=== PATIENT | female | born 1985 | race Hispanic/Latino ===

== ENCOUNTER 2016-10-23 09:33 | Emergency (ER) | payer MEDICAID ==
[2016-10-23 09:34] VITALS: BMI 32.5
[2016-10-23 09:59] VITALS: BP 118/87; PULSE 81; RESP 16; TEMP 98.2; O2SAT 98
--- NOTE | 2016-10-23 10:15 | ED PDOC ---
Arrival/HPI - General Chief Complaint: Female Genitourinary Time Seen by Provider: 10/23/16 10:09 - History of Present Illness Narrative History of Present Illness (Text): 10/23/16 10:14 Patient is reporting generalized fatigue and nausea. She reports that she is under a significant amount of stress currently and reports that she is not sure if it is the stress or if she could be . She reports similar symptoms in prior pregnancies. She reports 2 home tests negative but reports LMP was September 04. She reports irregular menses but reports wanting definitive testing. No other complaints. 10/23/16 11:57 Past Medical History - Past History Past History: No Previous - Infectious Disease Hx of Infectious Diseases: None - Tetanus Immunization Tetanus Immunization: Unknown - Musculoskeletal/Rheumatological Hx Falls: No - Psychiatric Hx Psychophysiologic Disorder: No Hx Substance Use: No - Past Surgical History Past Surgical History: No Previous - Anesthesia Hx Anesthesia: Yes Hx Anesthesia Reactions: No Hx Malignant Hyperthermia: No - Suicidal Assessment Feels Threatened In Home Enviroment: No Family/Social History Family/Social History: No Known Family HX Smoking Status: Light Smoker < 10 Cigarettes Daily Hx Alcohol Use: Yes Frequency of alcohol use: Socially Hx Substance Use: No Hx Substance Use Treatment: No Allergies/Home Meds Allergies/Adverse Reactions: Allergies No Known Allergies Allergy (Verified 10/23/16 09:52) Home Medications: Home Meds Medication Instructions Recorded Confirmed No Known Home Med 10/23/16 10/23/16 Review of Systems - Review of Systems Constitutional: Fatigue ENT: absent: Hearing Changes Respiratory: absent: SOB, Cough, Sputum, Wheezing Cardiovascular: absent: Chest Pain Gastrointestinal: Nausea. absent: Abdominal Pain, Constipation, Diarrhea, Vomiting Genitourinary Female: absent: Dysuria, Frequency, Hematuria, Urine Output Changes, Vaginal Bleeding, Vaginal Discharge Musculoskeletal: absent: Back Pain Skin: absent: Rash Neurological: absent: Headache, Dizziness, Focal Weakness Psychiatric: absent: Anxiety, Depression Physical Exam Vital Signs Temp Pulse Resp BP Pulse Ox 10/23/16 09:53 98.2 F 81 16 118/87 98 Temperature: Afebrile Blood Pressure: Normal Pulse: Regular Respiratory Rate: Normal Appearance: Positive for: Well-Appearing, Non-Toxic, Comfortable Pain Distress: None Mental Status: Positive for: Alert and Oriented X 3 - Systems Exam Head: Present: Atraumatic, Normocephalic Pupils: Present: PERRL Extroacular Muscles: Present: EOMI Conjunctiva: Present: Normal Mouth: Present: Moist Mucous Membranes Neck: Present: Normal Range of Motion Respiratory/Chest: Present: Clear to Auscultation, Good Air Exchange. No: Respiratory Distress Cardiovascular: Present: Regular Rate and Rhythm Abdomen: No: Tenderness, Distention Back: Present: Normal Inspection. No: CVA Tenderness Upper Extremity: Present: Normal Inspection Lower Extremity: Present: Normal Inspection Neurological: Present: GCS=15, CN II-XII Intact, Gait Normal Psychiatric: Present: Alert, Oriented x 3 Medical Decision Making ED Course and Treatment: 10/23/16 11:37 Patient is presenting for test. BHCG<2.39. Patient was made aware of results. Continues to deny any other symptoms (and therefore will not treat asymptomatic bacteriuria. - Lab Interpretations Lab Results: Lab Results 10/23/16 10:48: Beta HCG, Quant < 2.39 10/23/16 10:28: Urine Color Yellow, Urine Appearance Sl cloudy, Urine pH 6.0, Ur Specific [place] >= 1.030, Urine Protein Negative, Urine Glucose (UA) Negative, Urine Ketones Negative, Urine Blood Small H, Urine Nitrate Negative, Urine Bilirubin Negative, Urine Urobilinogen 1.0 H, Ur Leukocyte Esterase Moderate H, Urine RBC 0 - 2, Urine WBC 2 - 5, Ur Epithelial Cells 1 - 3, Urine Bacteria Small Disposition/Present on Arrival - Present on Arrival Any Indicators Present on Arrival: No History of DVT/PE: No History of Uncontrolled Diabetes: No Urinary Catheter: No History of Decub. Ulcer: No History Surgical Site Infection Following: None - Disposition Have Diagnosis and Disposition been Completed?: Yes Diagnosis: test negative Disposition: HOME/ ROUTINE Disposition Time: 11:38 Patient Plan: Discharge Condition: GOOD Additional Instructions: Follow up with PMD within 2 days for further evaluation. Return to ED if condition worsens. Referrals: Collins Shaikh Jr., MD [Primary Care Provider] - Follow up with primary
[2016-10-23 10:41] LABS: URINE BILIRUBIN NEGATIVE (NEGATIVE); URINE BLOOD SMALL (NEGATIVE); URINE GLUCOSE (UA) NEGATIVE (NEGATIVE); URINE KETONE NEGATIVE (NEGATIVE); URINE LEUKOCYTE ESTERASE MODERATE Leu/uL (NEGATIVE); URINE PROTEIN NEGATIVE mg/dL (<30 mg/dL)
[2016-10-23 10:42] LABS: URINE APPEARANCE SL CLOUDY (CLEAR); URINE COLOR YELLOW (YELLOW)
[2016-10-23 10:48] LABS: URINE BACTERIA SMALL (NEG); URINE RBC 0 - 2 /hpf (0-2)
== END 2016-10-23 11:45 | disposition home or self-care (01) ==
LOC: ED 09:33
DX: Z32.02 Encounter for pregnancy test, result negative (principal)

== ENCOUNTER 2016-12-03 20:15 | Emergency (ER) | payer MEDICAID ==
[2016-12-03 20:22] VITALS: BMI 33.5
[2016-12-03 20:26] VITALS: BP 121/60; PULSE 87; RESP 18; TEMP 98.4; O2SAT 97
--- NOTE | 2016-12-03 20:56 | ED PDOC ---
Arrival/HPI - General Historian: Patient - History of Present Illness Time/Duration: Other (5 days) Symptom Course: Worsening (2 days) Context: Home <Adin Morrison - Last Filed: 12/03/16 20:50> <Demetrius Lundy - Last Filed: 12/03/16 21:05> - General Chief Complaint: Abnormal Skin Integrity Time Seen by Provider: 12/03/16 20:24 - History of Present Illness Narrative History of Present Illness (Text): 12/03/16 20:40 This 31 yo female presents to this ED c/o posterior scalp rash x 5 days. Patient stated rash worsen last 2 days, also affection posterior neck. (Adin Morrison) Past Medical History - Provider Review Nursing Documentation Reviewed: Yes - Past History Past History: No Previous - Infectious Disease Hx of Infectious Diseases: None - Tetanus Immunization Tetanus Immunization: Unknown - Musculoskeletal/Rheumatological Hx Falls: No - Psychiatric Hx Psychophysiologic Disorder: No Hx Substance Use: No - Past Surgical History Past Surgical History: No Previous - Anesthesia Hx Anesthesia: No Hx Anesthesia Reactions: No Hx Malignant Hyperthermia: No - Suicidal Assessment Feels Threatened In Home Enviroment: No <Adin Morrison - Last Filed: 12/03/16 20:50> Family/Social History - Physician Review Nursing Documentation Reviewed: Yes Family/Social History: No Known Family HX Smoking Status: Former Smoker Hx Alcohol Use: Yes Frequency of alcohol use: Socially Hx Substance Use: No Hx Substance Use Treatment: No <Adin Morrison - Last Filed: 12/03/16 20:50> Allergies/Home Meds <Adin Morrison - Last Filed: 12/03/16 20:50> <Demetrius Lundy - Last Filed: 12/03/16 21:05> Allergies/Adverse Reactions: Allergies No Known Allergies Allergy (Verified 10/23/16 09:52) Review of Systems - Review of Systems Constitutional: Normal. absent: Fatigue, Weight Change, Fevers, Night Sweats Eyes: Normal ENT: Normal Respiratory: Normal Cardiovascular: Normal Gastrointestinal: Normal Genitourinary Female: Normal Musculoskeletal: Normal Skin: Rash (posterior scalp, and neck), Pruritis Neurological: Normal Endocrine: Normal Hemo/Lymphatic: Normal Psychiatric: Normal <Adin Morrison - Last Filed: 12/03/16 20:50> Physical Exam Temperature: Afebrile Blood Pressure: Normal Pulse: Regular Respiratory Rate: Normal Appearance: Positive for: Well-Appearing, Non-Toxic, Comfortable Pain Distress: None Mental Status: Positive for: Alert and Oriented X 3 - Systems Exam Head: Present: Atraumatic, Normocephalic Pupils: Present: PERRL Extroacular Muscles: Present: EOMI Conjunctiva: Present: Normal Mouth: Present: Moist Mucous Membranes Neck: Present: Normal Range of Motion Upper Extremity: Present: Normal Inspection, Normal ROM, NORMAL PULSES, Neurovascularly Intact, Capillary Refill < 2s Lower Extremity: Present: Normal Inspection, NORMAL PULSES, Normal ROM, Capillary Refill < 2 s Neurological: Present: GCS=15, CN II-XII Intact, Speech Normal Skin: Present: Warm, Dry, Rashes (scaly, plaque like rash, with mild scaly. No abscess or cellultis) Psychiatric: Present: Alert, Oriented x 3, Normal Insight <Adin Morrison - Last Filed: 12/03/16 20:50> Medical Decision Making Re-evaluation Time: 20:58 Reassessment Condition: Re-examined, Improved <Adin Morrison - Last Filed: 12/03/16 20:50> <Demetrius Lundy - Last Filed: 12/03/16 21:05> ED Course and Treatment: 12/03/16 20:57 Re-evaluation. Patient feels better. Discussed results and plan with patient who expresses understanding. All questions answered and there is agreement with the plan to discharge home with instructions. Patient stable for discharge. Return if symptoms persist or worsen. (Adin Morrison) - Medication Orders Current Medication Orders: Discontinued Medications Cephalexin Monohydrate (Keflex) 500 mg PO STAT STA PRN Reason: Protocol Stop: 12/03/16 20:58 - PA / RESEARCH CONSULTANT / Resident Statement DALTON has reviewed & agrees with the documentation as recorded. DALTON has examined the patient and agrees with the treatment plan. <Demetrius Lundy - Last Filed: 12/03/16 21:05> Disposition/Present on Arrival - Present on Arrival Any Indicators Present on Arrival: No History of DVT/PE: No History of Uncontrolled Diabetes: No Urinary Catheter: No History of Decub. Ulcer: No History Surgical Site Infection Following: None - Disposition Have Diagnosis and Disposition been Completed?: Yes Disposition Time: 20:59 Patient Plan: Discharge <Adin Morrison - Last Filed: 12/03/16 20:50> <Demetrius Lundy - Last Filed: 12/03/16 21:05> - Disposition Diagnosis: Rash and nonspecific skin eruption Disposition: HOME/ ROUTINE Patient Problems: Current Active Problems Problem Status Onset Rash and nonspecific skin eruption Acute Condition: GOOD Discharge Instructions (ExitCare): Seborrheic Dermatitis (GEN) Additional Instructions: Call private doctor for follow up visit in 1-2 days. Call steel construction worker for revaluation if rash persist. Return to emergency if symptoms worsen. Apply topical cream till rash resolved. Prescriptions: Cephalexin [cephalexin] 500 mg PO QID #28 cap Triamcinolone Acetonide [Kenalog 0.5% cream] 1 applic TOP TID #1 tube Referrals: Cristiana Vences MD [Staff Provider] - Follow up with primary Collins Shaikh Jr., MD [Primary Care Provider] - Follow up with primary
== END 2016-12-03 21:17 | disposition home or self-care (01) ==
LOC: ED 20:15
DX: R21 Rash and other nonspecific skin eruption (principal)

== ENCOUNTER 2017-05-13 16:04 | Emergency (ER) | payer MEDICAID, OTHER ==
[2017-05-13 16:15] VITALS: BP 136/95; BMI 32.1
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
[2017-05-13 18:23] VITALS: PULSE 82; TEMP 98.1; O2SAT 99
--- NOTE | 2017-05-13 18:28 | RAD ---
PROCEDURE: Radiographs of the Right Shoulder HISTORY: pain COMPARISON: None available. FINDINGS: BONES: No acute displaced fracture. The distal clavicle and underlying ribs appear intact. JOINTS: No acute dislocation. SOFT TISSUES: Soft tissues appear unremarkable. No evidence of radiopaque foreign body. IMPRESSION: No acute displaced fracture or dislocation evident. If symptoms persist or if there is continued clinical concern, x-ray follow-up in 7-10 days should be considered.
[2017-05-13 18:52] VITALS: RESP 20
== END 2017-05-13 18:52 | disposition home or self-care (01) ==
LOC: ED 16:04
DX: M25.511 Pain in right shoulder (principal); M54.5 Low back pain; V49.59XA Passenger injured in collision with other motor vehicles in traffic accident, initial encounter; Y92.410 Unspecified street and highway as the place of occurrence of the external cause
CPT/HCPCS: 72110; 73030; 81025; 96372; 99284; J1885

== ENCOUNTER 2017-12-30 10:39 | Emergency (ER) | payer MEDICAID ==
[2017-12-30 11:15] VITALS: BMI 33.5
[2017-12-30 11:23] VITALS: RESP 18; TEMP 98.3
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
[2017-12-30 13:05] VITALS: BP 119/86; PULSE 60; O2SAT 98
== END 2017-12-30 13:40 | disposition home or self-care (01) ==
LOC: ED 10:39
DX: S80.01XA Contusion of right knee, initial encounter (principal); W19.XXXA Unspecified fall, initial encounter; Z87.891 Personal history of nicotine dependence

== ENCOUNTER 2018-03-12 21:42 | Emergency (ER) | payer MEDICAID ==
[2018-03-12 23:22] VITALS: BMI 29.2
[2018-03-12 23:27] VITALS: RESP 18; TEMP 98; O2SAT 100
--- NOTE | 2018-03-13 00:50 | ED PDOC ---
Arrival/HPI - General Historian: Patient - History of Present Illness Narrative History of Present Illness (Text): 03/13/18 00:48 32yr old female with left ankle pain s/p injury this morning. pt states she missed 2 steps and twisted the ankle. pt is c/o minimal pain to the lateral aspect of the ankle. pt states she has been ambulating on the ankle. pt states she didnt go to work today and her job wants a note that she was seen for the ankle injury. pt is refusing medications for pain at present time. no other complaints. <Radha Zuluaga - Last Filed: 03/13/18 00:57> <Farzana Crowell - Last Filed: 03/15/18 13:38> - General Chief Complaint: Lower Extremity Problem/Injury Time Seen by Provider: 03/13/18 00:26 Past Medical History - Provider Review Nursing Documentation Reviewed: Yes - Travel History Have you recently traveled outside [place] w/in the past 3 mons?: No - Past History Past History: No Previous - Infectious Disease Hx of Infectious Diseases: None - Tetanus Immunization Tetanus Immunization: Unknown - Cardiac Hx Cardiac Disorders: No - Pulmonary Hx Respiratory Disorders: No - Neurological Hx Neurological Disorder: No - HEENT Hx HEENT Disorder: No - Renal Hx Renal Disorder: No - Endocrine/Metabolic Hx Endocrine Disorders: No - Hematological/Oncological Hx Blood Disorders: No - Integumentary Hx Dermatological Disorder: No - Musculoskeletal/Rheumatological Hx Falls: No - Gastrointestinal Hx Gastrointestinal Disorders: No - Genitourinary/Gynecological Hx Genitourinary Disorders: No - Psychiatric Hx Psychophysiologic Disorder: No Hx Substance Use: No - Past Surgical History Past Surgical History: No Previous - Anesthesia Hx Anesthesia: No Hx Anesthesia Reactions: No Hx Malignant Hyperthermia: No - Suicidal Assessment Feels Threatened In Home Enviroment: No <Radha Zuluaga T - Last Filed: 03/13/18 00:57> Family/Social History - Physician Review Nursing Documentation Reviewed: Yes Family/Social History: Unknown Family HX Smoking Status: Former Smoker Hx Alcohol Use: Yes Hx Substance Use: No Hx Substance Use Treatment: No <Radha Zuluaga - Last Filed: 03/13/18 00:57> Allergies/Home Meds <Radha Zuluaga - Last Filed: 03/13/18 00:57> <Farzana Crowell - Last Filed: 03/15/18 13:38> Allergies/Adverse Reactions: Allergies No Known Allergies Allergy (Verified 12/30/17 11:23) Home Medications: Home Meds Medication Instructions Recorded Confirmed RX: No Known Home Med 03/12/18 03/12/18 Review of Systems - Review of Systems Constitutional: absent: Fatigue, Fevers Respiratory: absent: SOB, Cough Cardiovascular: absent: Chest Pain, Palpitations, Syncope Gastrointestinal: absent: Nausea, Vomiting Musculoskeletal: Arthralgias Skin: absent: Rash, Pruritis Neurological: absent: Headache, Dizziness <Radha Zuluaga - Last Filed: 03/13/18 00:57> Physical Exam Vital Signs Reviewed: Yes Vital Signs Temp Pulse Resp BP Pulse Ox 03/12/18 23:00 98.0 F 79 18 125/79 100 Temperature: Afebrile Blood Pressure: Normal Pulse: Regular Respiratory Rate: Normal Appearance: Positive for: Well-Appearing, Non-Toxic, Comfortable Pain Distress: None Mental Status: Positive for: Alert and Oriented X 3 - Systems Exam Head: Present: Atraumatic Respiratory/Chest: Present: Clear to Auscultation Cardiovascular: Present: Regular Rate and Rhythm Lower Extremity: Present: Normal Inspection, NORMAL PULSES, Normal ROM, Tenderness (left ankle; + ttp over lateral malleolus; no edema, no erythema; no ecchymosis; full rom of ankle; sensation and distal pulses intact. cap refill <2. ), Neurovascularly Intact, Capillary Refill < 2 s. No: Edema, CALF TENDERNESS, Swelling, Erythema, Deformity, Temperature Abnormalties Neurological: Present: GCS=15 Skin: Present: Warm, Dry, Normal Color. No: Rashes Psychiatric: Present: Alert, Oriented x 3 <Radha Zuluaga - Last Filed: 03/13/18 00:57> Vital Signs Temp Pulse Resp BP Pulse Ox 03/13/18 01:00 80 18 121/82 100 03/12/18 23:00 98.0 F 79 18 125/79 100 <Farzana Crowell - Last Filed: 03/15/18 13:38> Medical Decision Making ED Course and Treatment: 03/13/18 00:50 Patient nontoxic well-appearing in no distress with stable vital signs X-rays of the left ankle; no fracture pt refused medications for pain. Patient refused air cast and crutches. pt now wants tylenol for pain. I discussed all results in depth with the patient advised to followup with the orthopedist within the next 2 days. Advised return if symptoms worsen persist or new symptoms develop Patient verbalizes understanding of discharge instructions and need for immediate followup. all aspects of this case were discussed the attending of record. Impression: Ankle pain Motrin every 6 hours as needed for pain Rest, ice, compression, elevation Use crutches for ambulation Followup with the orthopedist within the next 2 days Followup with primary care physician within the next 2 days Return if symptoms worsen persist or if new symptoms develop - RAD Interpretation Radiology Orders: 03/13/18 00:27 ANKLE LEFT 3 VIEWS ROUTINE [RAD] Stat <Radha Zuluaga - Last Filed: 03/13/18 00:57> - RAD Interpretation Radiology Orders: 03/13/18 00:27 ANKLE LEFT 3 VIEWS ROUTINE [RAD] Stat - Medication Orders Current Medication Orders: Discontinued Medications Acetaminophen (Tylenol 325mg Tab) 975 mg PO STAT STA Stop: 03/13/18 00:58 Last Admin: 03/13/18 01:00 Dose: 975 mg <Farzana Crowell - Last Filed: 03/15/18 13:38> - PA / CLINICAL VETERINARIAN / Resident Statement / has reviewed & agrees with the documentation as recorded. <Farzana Crowell - Last Filed: 03/15/18 13:38> Disposition/Present on Arrival - Present on Arrival Any Indicators Present on Arrival: No History of DVT/PE: No History of Uncontrolled Diabetes: No Urinary Catheter: No History of Decub. Ulcer: No History Surgical Site Infection Following: None - Disposition Have Diagnosis and Disposition been Completed?: Yes Disposition Time: 00:47 Patient Plan: Discharge <aRdha Zuluaga - Last Filed: 03/13/18 00:57> <Farzana Crowell - Last Filed: 03/15/18 13:38> - Disposition Diagnosis: Ankle pain Disposition: HOME/ ROUTINE Condition: GOOD Discharge Instructions (ExitCare): Ankle Sprain Additional Instructions: Motrin every 6 hours as needed for pain Rest, ice, compression, elevation Use crutches for ambulation Followup with the orthopedist within the next 2 days Followup with primary care physician within the next 2 days Return if symptoms worsen persist or if new symptoms develop Referrals: Mastromonaco,Edward, DO [Staff Provider] - Follow up with primary [facility] [Outside] - Follow up with primary [facility] [Outside] - Follow up with primary Forms: [employer] ([place]), WORK NOTE
[2018-03-13 01:10] VITALS: BP 121/82; PULSE 80
--- NOTE | 2018-03-13 10:37 | RAD ---
Date of service: 03/13/2018 PROCEDURE: Left Ankle Radiographs. HISTORY: ankle pain COMPARISON: None FINDINGS: BONES: Normal. No fracture. JOINTS: Normal. No osteoarthritis. Ankle mortise maintained. Talar dome intact SOFT TISSUES: Normal. OTHER FINDINGS: None. IMPRESSION: Normal left ankle radiographs.
== END 2018-03-13 01:00 | disposition home or self-care (01) ==
LOC: ED 21:42
DX: M25.572 Pain in left ankle and joints of left foot (principal); Z87.891 Personal history of nicotine dependence

== ENCOUNTER 2018-09-27 08:21 | Emergency (ER) | payer MEDICAID ==
[2018-09-27 08:21] VITALS: BMI 29.2
[2018-09-27 08:44] VITALS: RESP 18
--- NOTE | 2018-09-27 08:49 | ED PDOC ---
Arrival/HPI - General Chief Complaint: Abdominal Pain Time Seen by Provider: 09/27/18 08:39 Historian: Patient - History of Present Illness Narrative History of Present Illness (Text): 09/27/18 08:55 33 y.o female with no significant past medical history, presents to the emergency department for a test. Patient reports last menstrual cycle was in late July. Patient reports history of 1 week right lower abdominal pain with a burning sensation that worsens with sitting down. Patient denies urinary symptoms, back pain, headache, dizziness, or any other complaints. Time/Duration: 1 week Symptom Onset: Gradual Symptom Course: Unchanged Quality: Burning Past Medical History - Provider Review Nursing Documentation Reviewed: Yes - Past History Past History: No Previous - Infectious Disease Hx of Infectious Diseases: None - Tetanus Immunization Tetanus Immunization: Unknown - Reproductive Menopause: No - Cardiac Hx Cardiac Disorders: No - Pulmonary Hx Respiratory Disorders: No - Neurological Hx Neurological Disorder: No - HEENT Hx HEENT Disorder: No - Renal Hx Renal Disorder: No - Endocrine/Metabolic Hx Endocrine Disorders: No - Hematological/Oncological Hx Blood Disorders: No - Integumentary Hx Dermatological Disorder: No - Musculoskeletal/Rheumatological Hx Falls: No - Gastrointestinal Hx Gastrointestinal Disorders: No - Genitourinary/Gynecological Hx Genitourinary Disorders: No - Psychiatric Hx Psychophysiologic Disorder: No Hx Substance Use: No - Past Surgical History Past Surgical History: No Previous - Anesthesia Hx Anesthesia: No Hx Anesthesia Reactions: No Hx Malignant Hyperthermia: No - Suicidal Assessment Feels Threatened In Home Enviroment: No Family/Social History - Physician Review Nursing Documentation Reviewed: Yes Family/Social History: Unknown Family HX Smoking Status: Former Smoker Hx Alcohol Use: Yes Hx Substance Use: No Hx Substance Use Treatment: No Allergies/Home Meds Allergies/Adverse Reactions: Allergies No Known Allergies Allergy (Verified 12/30/17 11:23) Home Medications: Home Meds Medication Instructions Recorded Confirmed No Known Home Med 03/12/18 03/12/18 Review of Systems - Physician Review All systems were reviewed & negative as marked: Yes - Review of Systems Gastrointestinal: Abdominal Pain (Right lower abdominal pain. ) Physical Exam - Physical Exam Narrative Physical Exam (Text): 09/27/18 09:00 Gen: VS reviewed, alert, well developed, well nourished, nontoxic, mild distress. ENT: normal pharynx. Eye: EOMI, PERRL. Neck: no JVD, supple, no adenopathy. CV: regular rate, regular rhythm, no rubs, no murmur, no gallops, S1, S2, pulses equal and strong. Pulm: no distress, clear to auscultation, no wheeze, no rhonchi, breath sounds equal, no rales. Abd: soft, nontender, no guarding, no rebound, no rigidity, normal bowel sounds. Ext: no edema. Skin: good color, no rash, no cyanosis. Psych: responds appropriately to questions, normal affect. Neuro: oriented x 3, CN2-12 intact grossly, motor intact, sensation intact Vital Signs Temp Pulse Resp BP Pulse Ox 09/27/18 08:35 98.7 F 78 18 112/76 99 Temperature: Afebrile Blood Pressure: Normal Pulse: Regular Respiratory Rate: Normal Appearance: Positive for: Well-Appearing, Non-Toxic Pain Distress: Mild Mental Status: Positive for: Alert and Oriented X 3 - Systems Exam Genitourinary/Pelvic Exam: Present: Other (Mild right pelvic tenderness. ) Medical Decision Making ED Course and Treatment: 09/27/18 10:15 early gestation, IUP confirmed, no bleeding, refer to ob gyn physician assistant for comprehensive care - Lab Interpretations Narrative Lab Interpretation (Text): 09/27/18 10:10 09/27/18 08:59 Lab Results 09/27/18 08:59: Urine Color Yellow, Urine Appearance Clear, Urine pH 6.0, Ur Specific [place] 1.025, Urine Protein Negative, Urine Glucose (UA) Negative, Urine Ketones Negative, Urine Blood Negative, Urine Nitrate Negative, Urine Bilirubin Negative, Urine Urobilinogen 0.2, Ur Leukocyte Esterase Negative 09/27/18 08:59: WBC 9.0, RBC 4.61, Hgb 12.6, Hct 38.4, MCV 83.3, MCH 27.3, MCHC 32.8, RDW 13.4, Plt Count 244, MPV 11.2 H, Neut % (Auto) 53.1, Lymph % (Auto) 36.5 H, [place] % (Auto) 7.4 H, Eos % (Auto) 2.8, Baso % (Auto) 0.2, Lymph # (Auto) 3.3, [place] # (Auto) 0.7 H, Eos # (Auto) 0.3, Baso # (Auto) 0.02, Absolute Neuts (auto) 4.80 09/27/18 08:59: Beta HCG, Quant 59838.00 H 09/27/18 08:58: Blood Type Pending, Antibody Screen Pending, BBK History Checked Patient has bt I have reviewed the lab results: Yes - RAD Interpretation Narrative RAD Interpretations (Text): 09/27/18 10:14 Ultrasound OB transvaginal Impression: Likely early intrauterine gestation based on: Well- formed gestational sac. Yolk sac. No pole noted. Radiology Orders: 09/27/18 08:44 TRANSVAGINAL [US] Stat Wash Tub Machine Operator: Radiologist - Scribe Statement The provider has reviewed the documentation as recorded by the Scribe Laina Mack All medical record entries made by the Scribe were at my direction and personally dictated by me. I have reviewed the chart and agree that the record accurately reflects my personal performance of the history, physical exam, medical decision making, and the department course for this patient. I have also personally directed, reviewed, and agree with the discharge instructions and disposition. Disposition/Present on Arrival - Present on Arrival Any Indicators Present on Arrival: No History of DVT/PE: No History of Uncontrolled Diabetes: No Urinary Catheter: No History of Decub. Ulcer: No History Surgical Site Infection Following: None - Disposition Have Diagnosis and Disposition been Completed?: Yes Diagnosis: First trimester Disposition: HOME/ ROUTINE Disposition Time: 10:17 Patient Plan: Discharge Patient Problems: Current Active Problems Problem Status Onset First trimester Acute Condition: STABLE Discharge Instructions (ExitCare): Care Referrals: Mateo Salas MD [Staff Provider] - Follow up with primary Forms: [employer] ([place]ican)
[2018-09-27 09:20] LABS: BASO # 0.02 K/mm3 (0.0-2.0); BASO % 0.2 % (0.0-3.0); EOS # 0.3 (0.0-0.7); EOS % 2.8 % (1.5-5.0); HEMOGLOBIN 12.6 g/dL (12.0-16.0); LYMPH # 3.3 (1.2-3.4); LYMPH % 36.5 % (22.0-35.0); MEAN CELL VOLUME 83.3 fl (80.0-105.0); MEAN CORPUSCULAR HEMOGLOBIN 27.3 pg (25.0-35.0); MEAN CORPUSCULAR HGB CONC 32.8 g/dl (31.0-37.0); MEAN PLATELET VOLUME 11.2 fl (7.0-11.0); MONO # 0.7 (0.1-0.6); MONO % 7.4 % (1.0-6.0); RBC 4.61 10^6/uL (3.5-6.1); RED CELL DISTRIBUTION WIDTH 13.4 % (11.5-14.5)
[2018-09-27 09:22] LABS: URINE BILIRUBIN NEGATIVE (NEGATIVE); URINE BLOOD NEGATIVE (NEGATIVE); URINE GLUCOSE (UA) NEGATIVE (NEGATIVE); URINE LEUKOCYTE ESTERASE NEGATIVE Leu/uL (NEGATIVE); URINE PROTEIN NEGATIVE mg/dL (<30 mg/dL); URINE UROBILINOGEN 0.2 E.U./dL (<1 E.U./dL)
[2018-09-27 09:31] LABS: URINE APPEARANCE CLEAR (CLEAR); URINE COLOR YELLOW (YELLOW)
[2018-09-27 09:41] VITALS: BP 134/64; PULSE 88; TEMP 98; O2SAT 100
--- NOTE | 2018-09-27 10:17 | US ---
Date of service: 09/27/2018 PROCEDURE: First trimester ultrasound HISTORY: Pain, possible . COMPARISON: None TECHNIQUE: Standard protocol for this study/examination. FINDINGS: LMP: 08/14/2018 Prior examinations from the current : None TECHNIQUE: Real-time 2D imaging, duplex and color Doppler. FINDINGS: No pole identified. Gestational age Out of range. Below threshold for calculation of reliable gestational age. based on gestational sac measurement 0.93 cm Gestational age derived from LMP: 6 weeks 2 days JESSICA based on LMP: 05/21/2019 JESSICA based on biometry: Below the threshold for calculation of a reliable gestational age Gestational concordance cannot be determined Yolk sac identified Cervix: No Cervical abnormalities: Negative examination for cervical dilatation or effacement. Closed cervix measuring 3.02 cm Subchorionic hemorrhage: None UTERUS: 6.5 x 6.5 x 8.4 cm. ADNEXA: Right: 1.7 x 2.6 x 3.9 cm. Normal Doppler arterial waveform documented. Left: 1.3 x 1.4 x 1.6 cm. Normal Doppler arterial waveform documented Fluid in the cul-de-sac: None IMPRESSION: Likely early intrauterine gestation based on: Well-formed gestational sac. Yolk sac No pole noted.
== END 2018-09-27 11:18 | disposition home or self-care (01) ==
LOC: ED 08:21
DX: O26.891 Other specified pregnancy related conditions, first trimester (principal); R10.31 Right lower quadrant pain; Z3A.00 Weeks of gestation of pregnancy not specified